=== PATIENT | male | born 1960 | race Caucasian/White ===

== ENCOUNTER 2020-03-13 10:45 | Emergency (ER) | payer OTHER | END 2020-03-13 12:06 | disposition home or self-care (01) | LOC: JVIRT 10:45 | DX: Z03.818 Encounter for observation for suspected exposure to other biological agents ruled out (principal) | CPT/HCPCS: C9803; Q3014-GT; U0003 ==

== ENCOUNTER 2020-05-26 12:25 | Emergency (ER) | payer OTHER | END 2020-05-26 12:34 | disposition home or self-care (01) | LOC: JVIRT 12:25 | DX: Z20.822 Contact with and (suspected) exposure to COVID-19 (principal) | CPT/HCPCS: C9803; G2251-GT; Q3014-GT; U0003 ==